=== PATIENT | female | born 1960 | race Caucasian/White ===

== ENCOUNTER 2017-05-28 09:20 | Emergency (ER) | payer OTHER ==
[~2017-05-28] VITALS: Ht 167.6 cm; Wt 78.7 kg
[2017-05-28] MEDS ORDERED: OXYCODONE-APAP1 EAC3 PO (10:21)
[2017-05-28] MEDS ORDERED: FLEXERIL10 MG PO (10:21)
[2017-05-28 10:30] VITALS: BP 121/77
== END 2017-05-28 10:30 | disposition home or self-care (01) ==
LOC: EME 09:20
DX: M54.5 Low back pain (principal); M62.830 Muscle spasm of back; Y93.41 Activity, dancing
CPT/HCPCS: 99281; 99283